=== PATIENT | female | born 1940 | race Caucasian/White ===

== ENCOUNTER → 2019-07-06 11:32 | Outpatient (CLI) | payer MEDICARE, SELFPAY ==
--- NOTE | 2019-07-06 | DI.US.S_ITS ---
PROCEDURE: US ABDOMEN COMPLETE INDICATIONS: ABDOMINAL DISTENTION (GASEOUS) TECHNIQUE: Real-time scanning was performed of the abdominal and retroperitoneal organs, with image documentation. COMPARISON: None. FINDINGS: Liver: Liver is diffusely increased in echogenicity. No focal hepatic abnormalities identified. Right hepatic lobe measures 16.3 cm in sagittal diameter, within normal limits. Gallbladder: No gallstones identified. Normal gallbladder wall. No pericholecystic fluid. Negative sonographic Egan sign. Biliary ducts: Intrahepatic bile ducts are non-dilated. Extrahepatic bile duct caliber measures 4.3 mm. Normal is 6-7 mm or less in diameter, or 10 mm or less post-cholecystectomy. Pancreas: Visualized portions of the pancreatic head are sonographically normal. Pancreatic body and tail are obscured by overlying bowel gas. Spleen: Spleen is normal in size (8.4 cm) and homogeneous in echotexture. Kidneys: Kidneys are normal in size and echotexture. Right kidney measures 10.8 cm long; left kidney measures 10.3 cm long. No hydronephrosis or nephrolithiasis. No solid masses. Aorta: Visualized aorta is normal in caliber at less than 3 cm. Vascular calcifications indicate atherosclerosis. Proximal abdominal aorta measures 2.4 cm. Mid abdominal aorta measures 1.7 cm. Distal abdominal aorta measures 2.0 cm. Iliacs: Proximal common iliac arteries are normal in caliber at less than 2.5 cm. Right proximal common iliac artery measures 0.8 cm. Left proximal common iliac artery measures 0.9 cm. IVC: Intrahepatic inferior vena cava is patent. Miscellaneous: No free abdominal fluid. IMPRESSION: 1. Diffuse increased hepatic echogenicity noted, possibly related to hepatic steatosis but other sources of hepatocellular disease (such as hepatic fibrosis/cirrhosis and/or hepatitis) cannot be excluded. Recommend clinical correlation. 2. No ultrasound evidence of acute cholecystitis. Dictated by: Jaleel VILLA Interpreted: Vinicio Wiley MD on 07/06/2019 at 14:02 Approved by: Vinicio Wiley M.D. on 07/06/2019 at 23:36
--- NOTE | 2019-07-06 | DI.US.S_ITS ---
PROCEDURE: US PELVIC COMPLETE INDICATIONS: ABD DISTENTION (GASEOUS) TECHNIQUE: Real-time scanning was performed of the pelvic organs, with image documentation. Additional endovaginal scanning was necessary due to incomplete visualization of the adnexal and endometrial structures by transabdominal scanning. COMPARISON: [facility], , US ABDOMEN COMPLETE, 07/06/2019, 11:56. FINDINGS: Transabdominal scanning: Limited scanning through the kidneys shows no hydronephrosis. No pathologic free abdominal or pelvic fluid. Endovaginal scanning: Uterus: Uterus is normal in size at 5.2 x 2.7 x 4.0 cm. The endometrium measures 3.0 mm in combined thickness. Small myometrial/intramural calcifications measuring up to 0.4 cm in greatest diameter. Ovaries: Normal ovaries measuring 2.1 x 1.3 x 2.6 cm on the right and 2.4 x 1.3 x 1.3 cm on the left. IMPRESSION: Multiple small myometrial calcifications likely representing small uterine fibroids. No source for patient's reported abdominal distention identified by ultrasound. Dictated by: Jaleel VILLA Interpreted: Vinicio Wiley MD on 07/06/2019 at 14:00 Approved by: Vinicio Wiley M.D. on 07/06/2019 at 23:39
== END ==
PROVIDERS: Family Provider Family Medicine; PCP Family Medicine; Visit Provider Internal Medicine
DX: R14.0 Abdominal distension (gaseous) (principal)
CPT/HCPCS: 76700; 76830; 76856

== ENCOUNTER 2021-03-02 15:45 | Emergency (ER) | payer OTHER, SELFPAY ==
[2021-03-02] VITALS (7 sets, daily range): BP systolic 137–161; BP diastolic 67–72; PULSE 70–81; RESP 15–23; TEMP 36.6; O2SAT 92–99; BMI 20.5
--- NOTE | 2021-03-02 16:19 | DI.CT.S_ITS ---
PROCEDURE: CT HEAD/BRAIN WO CON INDICATIONS: syncopal episode last night,does not recall event TECHNIQUE: Noncontrast 4.5 mm thick angled axial sections acquired from the foramen magnum to the vertex, with coronal and sagittal reformats. For radiation dose reduction, the following was used: automated exposure control, adjustment of mA and/or kV according to patient size. COMPARISON: [facility], CT, HEAD WITHOUT CONTRAST, 09/30/2016, 0:55. [facility], CT, HEAD WITHOUT CONTRAST, 05/14/2012, 2:52. FINDINGS: Image quality: Excellent. CSF spaces: Basal cisterns are patent. No extra-axial fluid collections. The ventricles are symmetric in size and shape. Brain: No intracranial bleeds or masses. There is cerebral volume loss for age, with resultant ventricular and sulcal prominence. There has been interval progression of left greater than right periventricular and deep white matter chronic small vessel ischemic changes. Findings appear most severe in the left posterior parietal lobe. There is intracranial internal carotid artery atherosclerosis. Skull and face: Calvarium and visualized facial bones appear intact, without suspicious lesions. Sinuses: Visualized sinuses and mastoids are clear. IMPRESSION: 1. There is been interval progression of left greater than right chronic small vessel ischemic changes most pronounced over the posterior left parietal lobe. There is an area of encephalomalacia likely from remote infarction. This was not seen on comparison study from 2015. If there is persistent clinical concern for acute on chronic ischemic changes, further evaluation with MRI can be considered. 2. Age related senescent changes with mild progression of diffuse cortical volume loss. 3. No acute calvarial fractures. Dictated by: Kevin Covarrubias M.D. on 03/02/2021 at 15:46 Approved by: Kevin Covarrubias M.D. on 03/02/2021 at 15:53
--- NOTE | 2021-03-02 16:22 | DI.RAD.S_ITS ---
PROCEDURE: XR CHEST 1V INDICATIONS: syncope TECHNIQUE: One view of the chest was acquired. COMPARISON: [facility], , CHEST 2 VIEW, 10/22/2012, 11:10. FINDINGS: Surgical changes and devices: None. Lungs and pleura: Lungs are clear. No pleural effusions or pneumothorax. Mediastinum: Mediastinal contours appear normal. Heart size is normal. Bones and chest wall: No suspicious bony lesions. Overlying soft tissues appear unremarkable. IMPRESSION: Stable radiographic evaluation of the chest without acute cardiopulmonary abnormalities or focal airspace disease. Dictated by: Kevin Covarrubias M.D. on 03/02/2021 at 15:53 Approved by: Kevin Covarrubias M.D. on 03/02/2021 at 15:54
--- NOTE | 2021-03-02 16:26 | ED_ITS ---
HPI - Syncope General Chief Complaint: Syncope Stated Complaint: unsteady on feet, fall last night, feet hurt Time Seen by Provider: 03/02/21 16:21 Source: patient Mode of arrival: Wheelchair Limitations: no limitations History of Present Illness HPI narrative: This is a 80-year-old female who comes emergency department with possible syncopal episode. Patient states she was caring her tray from her bedroom back to her kitchen when she woke up on the floor. Patient is unsure how long she was out. Patient states that she was assisted off the floor by her boyfriend, he helped her to bed and then she was up this morning. Her main complaint is now pain in her feet particularly her left greater than her right at the midfoot. Patient states she has a mild headache but this is not atypical for her. She denies any vision changes. She denies any neck or back pain. She denies any chest pain, no shortness of breath, no abdominal pain, no nausea or vomiting, no diarrhea, no black or bloody stools, no frequency dysuria urgency. She denies any other pain or injury elsewhere. Patient states she does not take any daily medications. She has had prior orthopedic surgeries from fractures. Patient does not have any known medication allergies. She quit smoking 6 years prior. Her primary care physician was Dr. Cardona who has retired in the last year. Related Data Home Medications Medication Instructions Recorded Confirmed ASPIRIN (#ASPIRIN) 81 mg PO #0 07/03/12 FLAXSEED OIL (FLAX OIL) 1,000 mg PO #0 07/03/12 Fish Oil (#OMEGA 3) 1,000 mg PO #0 07/03/12 GARLIC (GARLIC OIL) 1 sgl PO #0 07/03/12 LOVASTATIN (MEVACOR) 20 mg PO QDAYPM #0 07/03/12 [CALCIUM] #0 07/03/12 citalopram 40 mg PO QDAY #0 07/03/12 metformin 1,000 mg PO BIDCC #0 07/03/12 trazodone 50 mg PO HS #0 07/03/12 triazolam [Halcion] 0.25 mg PO HSP #0 07/03/12 Previous Rx's Medication Instructions Recorded metformin 500 mg PO BID #30 tab 03/02/21 Allergies Allergy/AdvReac Type Severity Reaction Status Date / Time cat dander [CAT DANDER] Allergy Unknown Verified 03/02/21 16:12 dog dander [DOG DANDER] Allergy Unknown Verified 03/02/21 16:12 horse dander [HORSE DANDER] Allergy Unknown Verified 03/02/21 16:12 Review of Systems Review of Systems ROS Unobtainable: All systems reviewed & are unremarkable except as noted in HPI and below Patient History Social History Smoking Status: Former smoker Smoking Status: Former smoker alcohol intake frequency: holidays/special occasions only Substance Use Type: does not use Exam Narrative Exam Narrative: GEN: Thin, frail-appearing elderly female, alert and oriented x 3, patient appears to be in mild distress. HEENT: Atraumatic, pupils are equal round reactive to light, extraocular movements are intact, nares are clear, TMs are clear with no fluid, there is no conjunctival pallor. Throat is clear without any exudates, erythema, tonsillar enlargement or uvular deviation HEART: Regular rate and rhythm without murmur, clicks, rubs. Pulses are equal in upper and lower extremities LUNGS:Lungs clear to auscultation, no wheezes, rales, crackles, chest moves symmetrically, no tachypnea accessory muscle use. No tenderness of the chest wall. ABD:bowel sounds normal, soft, non-tender, no guarding, rebound, rigidity, no m asses noted, no hepatosplenomegaly :No CVA tenderness BACK: No cervical, thoracic or lumbar vertebral point tenderness. Patient has normal range of motion. Patient's gait is not tested. Muscle strength is 5/5 in upper and lower extremities. MSCL: Non-tender, no muscle atrophy, patient has tenderness particularly in the left foot over the midfoot of the 2nd through 4th toes. There is some mild erythema maybe the beginnings of some ecchymosis. Patient has normal range of motion without any other bony tenderness. She has normal sensation throughout. Her right foot she has some very mild tenderness over the midfoot over all 5 toes but no warmth, erythema or swelling. Patient does not have any other significant bony tenderness. NEURO:CN 2-12 intact, sensation normal. Initial Vital Signs Initial Vital Signs: Vital Signs Temperature 97.8 F 03/02/21 16:08 Pulse Rate 81 03/02/21 16:08 Respiratory Rate 15 03/02/21 16:08 Blood Pressure 137/67 03/02/21 16:08 Pulse Oximetry 98 03/02/21 16:08 Course Orders Ordered: ED Orders 03/02/21 16:19 CT head/brain wo con Stat EKG-12 Lead Stat 03/02/21 16:22 XR chest 1V Stat 03/02/21 16:44 XR foot LT min 3V Stat XR foot RT min 3V Stat 03/02/21 16:50 Complete Blood Count AUTO DIFF Stat Comprehensive Metabolic Panel Stat Ethanol (ETOH) Stat Lipase Stat NT-proBNP (BNP-Adult 18+) Stat Troponin & CK Cardiac Panel Stat Discontinued Medications Sodium Chloride (Normal Saline 0.9%) 1,000 mls @ 150 mls/hr IV CONT DREAD Last Infusion: 03/02/21 18:57 Dose: 0 mls/hr Documented by: Admin: 03/02/21 17:04 Dose: 150 mls/hr Documented by: WAYLON Vital Signs Vital signs: Vital Signs - 8 hr 03/02/21 16:08 03/02/21 16:55 03/02/21 16:58 Temperature 97.8 F Pulse Rate 81 74 72 Respiratory Rate 15 19 20 Blood Pressure 137/67 159/72 H Pulse Oximetry 98 99 03/02/21 17:00 03/02/21 17:30 03/02/21 18:00 Temperature Pulse Rate 70 77 79 Respiratory Rate 18 18 18 Blood Pressure 152/67 H 155/71 H 161/72 H Pulse Oximetry 99 92 95 03/02/21 18:30 Temperature Pulse Rate 77 Respiratory Rate 23 Blood Pressure 157/70 H Pulse Oximetry 97 MDM - Syncope Lab Data Attestation: I reviewed the patient's lab results. Result diagrams: 03/02/21 16:50 03/02/21 16:50 Labs: Lab Results 03/02/21 03/02/21 03/02/21 Range/Units 16:50 16:50 16:50 WBC 6.2 (4.5-11.0) X10^3/uL RBC 4.84 (4.0-5.2) X10^6/uL Hgb 14.2 (12.0-16.0) g/dL Hct 41.4 (36-46) % MCV 85.5 (80-100) fL MCH 29.3 (26-34) PG MCHC 34.3 (30-36) % RDW 13.8 (11.6-14.8) % Plt Count 198 (150-400) X10^3/uL Neut % (Auto) 61.9 (50-75) % Lymph % (Auto) 26.6 (25-40) % Catron % (Auto) 8.9 (3-14) % Eos % (Auto) 1.3 L (2-4) % Baso % (Auto) 1.3 (0-2) % Neut # (Auto) 3900 (7047-0184) /uL Lymph # (Auto) 1700 (7122-0804) /uL Catron # (Auto) 600 (0-900) /uL Eos # (Auto) 100 (0-450) /uL Baso # (Auto) 100 (0-100) /uL Sodium 134 L (137-145) mmol/L Potassium 3.8 (3.4-5.1) mmol/L Chloride 99 (98-107) mmol/L Carbon Dioxide 25 (22-32) mmol/L BUN 15 (7-17) mg/dL Creatinine 0.65 (0.52-1.04) mg/dL Estimated GFR > 60.0 (>60) mL/min BUN/Creatinine Ratio 23.1 H (6-22) Glucose 358 H (80-110) mg/dL Calcium 9.6 (8.4-10.2) mg/dL Total Bilirubin 0.5 (0.2-1.3) mg/dL AST 22 (14-36) IU/L ALT 19 (<35) IU/L Alkaline Phosphatase 84 (38-126) U/L Total Creatine Kinase 26 L (30-135) U/L CK-MB (CK-2) TNP CK-MB (CK-2) Rel Index TNP Troponin I < 0.012 (0.01-0.034) ng/mL NT-Pro-B Natriuret Pep 35 (<450) pg/mL Total Protein 7.0 (6.3-8.2) g/dL Albumin 4.0 (3.5-5.0) g/dL Globulin 3.0 (1.7-4.1) g/dL Albumin/Globulin Ratio 1.3 (1.0-2.8) Lipase 123 (23-300) U/L Ethyl Alcohol ( - 10) mg/dL 03/02/21 Range/Units 16:50 WBC (4.5-11.0) X10^3/uL RBC (4.0-5.2) X10^6/uL Hgb (12.0-16.0) g/dL Hct (36-46) % MCV (80-100) fL MCH (26-34) PG MCHC (30-36) % RDW (11.6-14.8) % Plt Count (150-400) X10^3/uL Neut % (Auto) (50-75) % Lymph % (Auto) (25-40) % Catron % (Auto) (3-14) % Eos % (Auto) (2-4) % Baso % (Auto) (0-2) % Neut # (Auto) (8900-4177) /uL Lymph # (Auto) (9494-1643) /uL Catron # (Auto) (0-900) /uL Eos # (Auto) (0-450) /uL Baso # (Auto) (0-100) /uL Sodium (137-145) mmol/L Potassium (3.4-5.1) mmol/L Chloride (98-107) mmol/L Carbon Dioxide (22-32) mmol/L BUN (7-17) mg/dL Creatinine (0.52-1.04) mg/dL Estimated GFR (>60) mL/min BUN/Creatinine Ratio (6-22) Glucose (80-110) mg/dL Calcium (8.4-10.2) mg/dL Total Bilirubin (0.2-1.3) mg/dL AST (14-36) IU/L ALT (<35) IU/L Alkaline Phosphatase (38-126) U/L Total Creatine Kinase (30-135) U/L CK-MB (CK-2) CK-MB (CK-2) Rel Index Troponin I (0.01-0.034) ng/mL NT-Pro-B Natriuret Pep (<450) pg/mL Total Protein (6.3-8.2) g/dL Albumin (3.5-5.0) g/dL Globulin (1.7-4.1) g/dL Albumin/Globulin Ratio (1.0-2.8) Lipase (23-300) U/L Ethyl Alcohol < 10 ( - 10) mg/dL Imaging Data CT scan - head: Radiologist's Impression: Ivanna Hendrickson 80 F [address] [id number] Scan ReportSigned Patient: Ivanna Hendrickson CMR#: [id number]: [id number]:[id number]/Sex: 80 / FDate of Service: 03/02/21Loc: EDAccession Number: [id number] Procedure: CT head/brain wo con Ordering Provider: Shikha Thurman D.O. PROCEDURE: CT HEAD/BRAIN WO CON INDICATIONS: syncopal episode last night,does not recall event TECHNIQUE: Noncontrast 4.5 mm thick angled axial sections acquired from the foramen magnum to the vertex, with coronal and sagittal reformats. For radiation dose reduction, the following was used: automated exposure control, adjustment of mA and/or kV according to patient size. COMPARISON: [facility], CT, HEAD WITHOUT CONTRAST, 09/30/2016, 0:55. [facility], CT, HEAD WITHOUT CONTRAST, 05/14/2012, 2:52. FINDINGS: Image quality: Excellent. CSF spaces: Basal cisterns are patent. No extra-axial fluid collections. The ventricles are symmetric in size and shape. Brain: No intracranial bleeds or masses. There is cerebral volume loss for age, with resultant ventricular and sulcal prominence. There has been interval progression of left greater than right periventricular and deep white matter chronic small vessel ischemic changes. Findings appear most severe in the left posterior parietal lobe. There is intracranial internal carotid artery atherosclerosis. Skull and face: Calvarium and visualized facial bones appear intact, without suspicious lesions. Sinuses: Visualized sinuses and mastoids are clear. IMPRESSION: 1. There is been interval progression of left greater than right chronic small vessel ischemic changes most pronounced over the posterior left parietal lobe. There is an area of encephalomalacia likely from remote infarction. This was not seen on comparison study from 2016. If there is persistent clinical concern for acute on chronic ischemic changes, further evaluation with MRI can be considered. 2. Age related senescent changes with mild progression of diffuse cortical volume loss. 3. No acute calvarial fractures. Dictated by: Kevin Covarrubias M.D. on 03/02/2021 at 15:46 Approved by: Kevin Covarrubias M.D. on 03/02/2021 at 15:53 Chest x-ray: Radiologist's Impression: [address] [id number] ReportSigned Patient: Ivanna Hendrickson CMR#: [id number]: 1940cct:[id number]/Sex: 80 / FDate of Service: 03/02/21Lo: EDAccession Number: [id number] Procedure: XR chest 1V Ordering Provider: Shikha Thurman D.O. PROCEDURE: XR CHEST 1V INDICATIONS: syncope TECHNIQUE: One view of the chest was acquired. COMPARISON: [facility], CHEST 2 VIEW, 10/22/2012, 11:10. FINDINGS: Surgical changes and devices: None. Lungs and pleura: Lungs are clear. No pleural effusions or pneumothorax. Mediastinum: Mediastinal contours appear normal. Heart size is normal. Bones and chest wall: No suspicious bony lesions. Overlying soft tissues appear unremarkable. IMPRESSION: Stable radiographic evaluation of the chest without acute cardiopulmonary abnormalities or focal airspace disease. Dictated by: Kevin Covarrubias M.D. on 03/02/2021 at 15:53 Approved by: Kevin Covarrubias M.D. on 03/02/2021 at 15:54 Extremity x-ray #1: Radiologist's Impression: [address] [id number] ReportSigned Patient: Ivanna Hendrickson CMR#: [id number]: 1940cct:[id number]/Sex: 80 / FDate of Service: 03/02/21Loc: EDAccession Number: [id number] Procedure: XR foot RT min 3V Ordering Provider: Shikha Thurman D.O. PROCEDURE: XR FOOT RT MIN 3V INDICATIONS: mid foot pain,s/p fall/syncope TECHNIQUE: 3 views of the foot were acquired. COMPARISON: None. FINDINGS: Bones: Diffuse osteopenia. Polyarticular background degenerative changes throughout the right foot. No acute fracture seen. Degenerative changes of the tibiotalar and subtalar joints. Partially imaged surgical fixation hardware of the distal right tibia. Limited evaluation without evidence for hardware complication. No suspicious intraosseous lesions. Soft tissues: No tibiotalar joint effusion. Achilles tendon appears normal. IMPRESSION: 1. Right foot without acute fracture or dislocation. 2. Diffuse osteopenia. 3. Right tibiotalar and subtalar joint osteoarthrosis and diffuse background degenerative changes of the right foot. If there is persistent clinical concern for occult fracture given adequate mechanism of injury, consider repeat imaging in 10-14 days. Dictated by: Kevin Covarrubias M.D. on 03/02/2021 at 17:04 Approved by: Kevin Covarrubias M.D. on 03/02/2021 at 17:06 Extremity x-ray #2: Radiologist's Impression: [address] [id number] ReportSigned Patient: Ivanna Hendrickson CMR#: [id number]: 1940cct:[id number]/Sex: 80 / FDate of Service: 03/02/21Loc: EDAccession Number: [id number] Procedure: XR foot LT min 3V Ordering Provider: Shikha Thurman D.O. PROCEDURE: XR FOOT LT MIN 3V INDICATIONS: mid foot pain, s/p fall/syncope TECHNIQUE: 3 views of the foot were acquired. COMPARISON: [facility], CR, XR FOOT RT MIN 3V, 03/02/2021, 17:01. [facility], , ANKLE 3 VIEWS LEFT, 06/30/2012, 16:33. FINDINGS: Bones: Diffuse osteopenia. Status post open reduction and internal fixation of the distal left fibula. No evidence to suggest hardware failure or loosening. Severe degenerative changes of the left 1st metatarsophalangeal joint. Degenerative changes of the subtalar joint. There is poor visualization of the anterior talus, likely related to combination of bone demineralization and patient positioning. No suspicious bony lesions. Soft tissues: No tibiotalar joint effusion. Achilles tendon appears normal. IMPRESSION: 1. Diffuse osteopenia. 2. Irregularity of the neck of the anterior talus which may be due to combination of patient positioning and osteopenia. Recommend correlation with physical examination to exclude point tenderness over the anterior/dorsal ankle. Consider further evaluation with dedicated imaging of the left foot. 3. Status post open reduction and internal fixation of the distal fibula without evidence for hardware complication. 4. Severe degenerative changes of the left 1st metatarsophalangeal joint. Dictated by: Kevin Covarrubias M.D. on 03/02/2021 at 16:53 Approved by: Kevin Covarrubias M.D. on 03/02/2021 at 17:00 ECG Data Attestation: I personally reviewed and interpreted this ECG as follows: Interpretation: Sinus rhythm left axis deviation, rate of 69 W[place] 186 QRS 84 and QTC 441. Under patient has T-wave inversion in lead 3. With no priors for comparison with no elevation noted. MDM Narrative Medical decision making narrative: This is a 80-year-old female with a likely syncopal event. Patient does not recall hitting the floor. She has pain in her left and right feet but on her left foot x-ray she has some possible changes on the talus but she is nontender. The only area she is tender is at the midfoot just adjacent to the proximal interphalangeal joint. Patient was put in a ortho shoe for her left which was the most tender, she is able to write bear on her weight without issue. Set up with a walker. Her imaging otherwise has well as EKG and lab work showed hyperglycemia but no other acute changes that would clearly delineate the cause of her event last night. Patient did not have any arrhythmias here in the department. Discussed with patient she has not been taking her anti diabetic medications. She had stopped after her primary care physician retired and she was recommended to restart these is increases her risk for stroke as well as heart attack. Patient and I discussed that she will need follow-up and if she has any recurrent events she needs repeat evaluation in the emergency department and further workup. Discharge Plan Departure Patient Disposition: Home Clinical Impression: Syncope, Bilateral foot pain Instructions: DI for Syncope in Adults (Fainting) Activity Restrictions/Additional Instructions: Follow up with your physician in the next several days for recheck. Call for an appointment. You can follow up with any of Dr. Brendan morales. Your glucose is quite elevated today you should restart your metformin. I did not restart at the full dose but a half dose of 500mg twice daily. [facility] [place]. Your left foot x-ray shows some irregularity at the talus which is the upper fo ot, you are nontender in this area so I do not suspect a fracture at this time. Your right foot xray shows degenerative changes but no clear fractures or breaks. If you continue to have symptoms I do recommend repeat x-ray imaging in 7-10 days. Splint Care: Keep splint clean and dry. Elevated affected body part to decrease swelling. OK to use ice pack on the affected body part. Use for 15-20 minutes each time, for 5-6x per day. If you develop worsening pain, numbness, tingling, discoloration of the affected body part, adjust the ortho shoe, and either see your doctor for an urgent re-assessment, or return to the Emergency Department. Return to the Emergency Department for any new or worsening symptoms. Please return for fevers, lightheadedness, passing out, recurrent symptoms, new chest pain, shortness of breath, persistent vomiting, new or worsening swelling or increasing pain. Prescriptions: New metformin 500 mg tablet 500 mg PO BID Qty: 30 RF: 0 No Action citalopram 40 MG tablet 40 mg PO QDAY Qty: 0 RF: 0 trazodone 50 MG tablet 50 mg PO HS Qty: 0 RF: 0 ASPIRIN (#ASPIRIN) 81 mg PO Qty: 0 RF: 0 metformin 1,000 MG tablet 1,000 mg PO BIDCC Qty: 0 RF: 0 LOVASTATIN (MEVACOR) 20 mg PO QDAYPM Qty: 0 RF: 0 triazolam [Halcion] 0.25 MG tablet 0.25 mg PO HSP Qty: 0 RF: 0 FLAXSEED OIL (FLAX OIL) 1,000 mg PO Qty: 0 RF: 0 Fish Oil (#OMEGA 3) 1,000 mg PO Qty: 0 RF: 0 GARLIC (GARLIC OIL) 1 sgl PO Qty: 0 RF: 0 [CALCIUM] Qty: 0 RF: 0
--- NOTE | 2021-03-02 16:44 | DI.RAD.S_ITS ---
PROCEDURE: XR FOOT RT MIN 3V INDICATIONS: mid foot pain,s/p fall/syncope TECHNIQUE: 3 views of the foot were acquired. COMPARISON: None. FINDINGS: Bones: Diffuse osteopenia. Polyarticular background degenerative changes throughout the right foot. No acute fracture seen. Degenerative changes of the tibiotalar and subtalar joints. Partially imaged surgical fixation hardware of the distal right tibia. Limited evaluation without evidence for hardware complication. No suspicious intraosseous lesions. Soft tissues: No tibiotalar joint effusion. Achilles tendon appears normal. IMPRESSION: 1. Right foot without acute fracture or dislocation. 2. Diffuse osteopenia. 3. Right tibiotalar and subtalar joint osteoarthrosis and diffuse background degenerative changes of the right foot. If there is persistent clinical concern for occult fracture given adequate mechanism of injury, consider repeat imaging in 10-14 days. Dictated by: Kevin Covarrubias M.D. on 03/02/2021 at 17:04 Approved by: Kevin Covarrubias M.D. on 03/02/2021 at 17:06
--- NOTE | 2021-03-02 16:44 | DI.RAD.S_ITS ---
PROCEDURE: XR FOOT LT MIN 3V INDICATIONS: mid foot pain, s/p fall/syncope TECHNIQUE: 3 views of the foot were acquired. COMPARISON: [facility], CR, XR FOOT RT MIN 3V, 03/02/2021, 17:01. [facility], CR, ANKLE 3 VIEWS LEFT, 06/30/2012, 16:33. FINDINGS: Bones: Diffuse osteopenia. Status post open reduction and internal fixation of the distal left fibula. No evidence to suggest hardware failure or loosening. Severe degenerative changes of the left 1st metatarsophalangeal joint. Degenerative changes of the subtalar joint. There is poor visualization of the anterior talus, likely related to combination of bone demineralization and patient positioning. No suspicious bony lesions. Soft tissues: No tibiotalar joint effusion. Achilles tendon appears normal. IMPRESSION: 1. Diffuse osteopenia. 2. Irregularity of the neck of the anterior talus which may be due to combination of patient positioning and osteopenia. Recommend correlation with physical examination to exclude point tenderness over the anterior/dorsal ankle. Consider further evaluation with dedicated imaging of the left foot. 3. Status post open reduction and internal fixation of the distal fibula without evidence for hardware complication. 4. Severe degenerative changes of the left 1st metatarsophalangeal joint. Dictated by: Kevin Covarrubias M.D. on 03/02/2021 at 16:53 Approved by: Kevin Covarrubias M.D. on 03/02/2021 at 17:00
[2021-03-02] MEDS: SODIUM CHLORIDE 0.9% 1,000 ML 150 ML IV (17:04)
[2021-03-02 17:06] LABS: Add Manual Diff / Slide Review NO; Basophils Absolute Auto 100 /uL (0-100); Basophils Percent Auto 1.3 % (0-2); Eosinophils Absolute Auto 100 /uL (0-450); Eosinophils Percent Auto 1.3 % (2-4); Hematocrit 41.4 % (36-46); Hemoglobin 14.2 g/dL (12.0-16.0); Lymphocytes Absolute Auto 1700 /uL (1100-4500); Lymphocytes Percent Auto 26.6 % (25-40); Mean Corpuscular HGB Conc 34.3 % (30-36); Mean Corpuscular Hemoglobin 29.3 PG (26-34); Mean Corpuscular Volume 85.5 fL (80-100); Monocytes Absolute Auto 600 /uL (0-900); Monocytes Percent Auto 8.9 % (3-14); Neutrophils Absolute Auto 3900 /uL (1500-7000); Neutrophils Percent Auto 61.9 % (50-75); Platelet Count 198 X10^3/uL (150-400); Red Blood Cell Count 4.84 X10^6/uL (4.0-5.2); Red Cell Distribution Width 13.8 % (11.6-14.8); White Blood Cell Count 6.2 X10^3/uL (4.5-11.0)
[2021-03-02 17:20] LABS: Ethanol (ETOH) < 10 mg/dL
[2021-03-02 17:25] LABS: Lipase 123 U/L (23-300)
[2021-03-02 17:27] LABS: Alanine Aminotransferase 19 IU/L (<35); Albumin Globulin Ratio 1.3 (1.0-2.8); Alkaline Phosphatase 84 U/L (38-126); Aspartate Aminotransferase 22 IU/L (14-36); BUN Creatinine Ratio 23.1 (6-22); Bilirubin Total 0.5 mg/dL (0.2-1.3); Blood Urea Nitrogen 15 mg/dL (7-17); Calcium 9.6 mg/dL (8.4-10.2); Carbon Dioxide 25 mmol/L (22-32); Chloride 99 mmol/L (98-107); Creatine Kinase 26 U/L (30-135); Estimated Glomerular Filt Rate > 60.0 mL/min (>60); Glucose 358 mg/dL (80-110); HEMOLYSIS < 15 (0-50); Potassium 3.8 mmol/L (3.4-5.1); Sodium 134 mmol/L (137-145)
[2021-03-02 17:34] LABS: NT-proBNP (BNP-Adult 18+) 35 pg/mL (<450)
[2021-03-02 17:39] LABS: Troponin I < 0.012 ng/mL (0.01-0.034)
== END 2021-03-02 18:59 | disposition home or self-care (01) ==
PROVIDERS: Emergency Provider Emergency Medicine
DX: R55 Syncope and collapse (principal); M79.672 Pain in left foot; M79.671 Pain in right foot
CPT/HCPCS: 36415; 70450; 71045; 73630; 80053; 80320; 82550; 83690; 83880; 84484; 85025; 93005; 93010; 96360; 96361; 99284

== ENCOUNTER 2021-06-25 08:10 | Emergency (ER) | payer OTHER, SELFPAY ==
[2021-06-25 08:18] VITALS: BP 163/76; PULSE 72; RESP 16; TEMP 36.6; O2SAT 96
--- NOTE | 2021-06-25 08:18 | DI.RAD.S_ITS ---
PROCEDURE: XR KNEE LT 3V INDICATIONS: fall, unable to bear weight TECHNIQUE: 3 views of the knee were acquired. COMPARISON: None. FINDINGS: Bones: There is a nondisplaced fracture noted involving the proximal fibula. Generalized decreased osseous mineralization noted. No suspicious bony lesions. Mild medial compartment joint space narrowing. Soft tissues: No joint effusion. No suspicious soft tissue calcifications. Diffuse atherosclerotic vascular calcification noted. IMPRESSION: 1. Nondisplaced proximal fibular fracture. 2. Mild medial compartment joint space narrowing without joint effusion. Approved by: Jorge Downs M.D. on 06/25/2021 at 8:21
--- NOTE | 2021-06-25 08:18 | DI.RAD.S_ITS ---
PROCEDURE: XR ANKLE LT MIN 3V INDICATIONS: fall, unable to bear weight TECHNIQUE: 3 views of the ankle were acquired. COMPARISON: [facility], CR, XR FOOT LT MIN 3V, 03/02/2021, 17:01. [facility], CR, ANKLE 3 VIEWS LEFT, 06/30/2012, 16:33. FINDINGS: Bones: There is a well-healed distal fibular fracture supported by lateral cortical sideplate and screws. Regional osteopenia noted. Ankle mortise is maintained. No evidence of acute fracture, hardware failure or loosening. Soft tissues: No tibiotalar joint effusion. Achilles tendon appears normal. IMPRESSION: Osteopenia without evidence of acute fracture or dislocation Distal fibular cortical sideplate and screws in good position. No hardware failure or loosening Approved by: Jorge Downs M.D. on 06/25/2021 at 8:17
--- NOTE | 2021-06-25 08:20 | ED_ITS ---
HPI - General Adult General Chief complaint: Fall Stated complaint: GLF Time Seen by Provider: 06/25/21 08:18 History of Present Illness HPI narrative: 80-year-old woman lives alone and independently with a history of type 2 diabetes, depression, hyperlipidemia was in the bathroom and had a mechanical fall landing on her left side. No loss of consciousness, no syncope, no chest pain or palpitations associated with event. She was unable to bear weight. States that she may have hit her head but has no complaints of head pain no head trauma no neck pain. She is not on any anticoagulants. She has had no other recent illnesses and complains of no fevers, cough, chills, vomiting, diarrhea, abdominal pain. She does note that her left ankle is chronically painful and she believes that the screws from a distant ORIF are ?coming out?. Related Data Home Medications Medication Instructions Recorded Confirmed ASPIRIN (#ASPIRIN) 81 mg PO #0 07/03/12 FLAXSEED OIL (FLAX OIL) 1,000 mg PO #0 07/03/12 Fish Oil (#OMEGA 3) 1,000 mg PO #0 07/03/12 GARLIC (GARLIC OIL) 1 sgl PO #0 07/03/12 LOVASTATIN (MEVACOR) 20 mg PO QDAYPM #0 07/03/12 [CALCIUM] #0 07/03/12 citalopram 40 mg tablet 40 mg PO QDAY #0 07/03/12 metformin 1,000 mg tablet 1,000 mg PO BIDCC #0 07/03/12 trazodone 50 mg tablet 50 mg PO HS #0 07/03/12 triazolam 0.25 mg tablet (Halcion) 0.25 mg PO HSP #0 07/03/12 Previous Rx's Medication Instructions Recorded metformin 500 mg tablet 500 mg PO BID #30 tab 03/02/21 hydrocodone 5 mg-acetaminophen 325 1 tab PO Q6HR PRN #12 tab 06/25/21 mg tablet Allergies Allergy/AdvReac Type Severity Reaction Status Date / Time cat dander [CAT DANDER] Allergy Unknown Verified 06/25/21 09:02 dog dander [DOG DANDER] Allergy Unknown Verified 06/25/21 09:02 horse dander [HORSE DANDER] Allergy Unknown Verified 06/25/21 09:02 Review of Systems Review of Systems Narrative: Remainder of complete review of systems is otherwise unremarkable except for that included in the HPI. Patient History Medical History Depression Hyperlipidemia Poorly controlled diabetes mellitus Social History Smoking Status: Former smoker Smoking Status: Former smoker alcohol intake frequency: holidays/special occasions only Substance Use Type: does not use Exam Narrative Exam Narrative: General: Frail appearing but in no acute distress. Able to give a complete history. HEENT: Moist mucous membranes, normal sclera with reactive pupils, head is atraumatic Neck: No JVD, supple, no midline cervical spine pain Respiratory: Full and symmetrical air movement Cardiac: Regular rate and rhythm no murmurs no bruits Abdomen: Soft, nontender, good bowel tones, no flank pain Skin: Warm and dry, no rashes, abrasions or bruises Neurologic: Grossly neurologically intact with no obvious asymmetries or abnormalities Extremities: No external trauma, well perfused, able to lift her left leg without pain with excellent flexion, internal and external rotation. She has some tenderness along the fibular head and some chronic left ankle tenderness with what appears to be mild chronic swelling bilaterally at the ankle. She does have full range of motion at the ankle and at the knee. Psych: Cooperative, appropriate affect Initial Vital Signs Initial Vital Signs: Vital Signs Temperature 97.8 F 06/25/21 08:18 Pulse Rate 72 06/25/21 08:18 Respiratory Rate 16 06/25/21 08:18 Blood Pressure 163/76 H 06/25/21 08:18 Pulse Oximetry 96 06/25/21 08:18 Course Orders Ordered: ED Orders 06/25/21 08:18 XR ankle LT min 3V Stat XR knee LT 3V Stat 06/25/21 10:11 XR tibia fibula LT 2V Stat Discontinued Medications Hydrocodone Bitart/Acetaminophen (Hydrocodone/Acet 5/325 Tablet) 1 tab PO NOW ONE Stop: 06/25/21 08:19 Last Admin: 06/25/21 08:41 Dose: 1 tab Documented by: RAMIRO Vital Signs Vital signs: Vital Signs - 8 hr 06/25/21 08:18 06/25/21 11:18 Temperature 97.8 F 97.7 F Pulse Rate 72 62 Respiratory Rate 16 20 Blood Pressure 163/76 H 145/65 H Pulse Oximetry 96 95 Medical Decision Making Imaging Data XR ankle: Radiologist's Impression: FINDINGS: Bones: There is a well-healed distal fibular fracture supported by lateral cortical sideplate and screws. Regional osteopenia noted. Ankle mortise is maintained. No evidence of acute fracture, hardware failure or loosening. Soft tissues: No tibiotalar joint effusion. Achilles tendon appears normal. IMPRESSION: Osteopenia without evidence of acute fracture or dislocation Distal fibular cortical sideplate and screws in good position. No hardware fa ilure or loosening Approved by: Jorge Downs M.D. on 06/25/2021 at 8:17 XR knee: Radiologist's Impression: FINDINGS: Bones: There is a nondisplaced fracture noted involving the proximal fibula. Generalized decreased osseous mineralization noted. No suspicious bony lesions. Mild medial compartment joint space narrowing. Soft tissues: No joint effusion. No suspicious soft tissue calcifications. Diffuse atherosclerotic vascular calcification noted. IMPRESSION: 1. Nondisplaced proximal fibular fracture. 2. Mild medial compartment joint space narrowing without joint effusion. Approved by: Jorge Downs M.D. on 06/25/2021 at 8:21 xr tib/fib: Radiologist's Impression: FINDINGS: Bones: There is an oblique fracture through the proximal fibular diaphysis. Generalized decrease in osseous mineralization noted. Distal fibular cortical sideplate and screws unremarkable. Soft tissues: No suspicious soft tissue calcifications or masses. Diffuse atherosclerotic vascular calcification noted. IMPRESSION: Oblique nondisplaced proximal fibular diaphyseal fracture Approved by: Jorge Downs M.D. on 06/25/2021 at 10:03 MDM Narrative Medical decision making narrative: 80-year-old woman with mechanical fall in the bathroom with sustained Oblique nondisplaced proximal fibular diaphyseal fracture on the left. No other significant injury. Pain was well controlled with a single Vicodin in the emergency department. Case is reviewed with Dr. Marcus, orthopedist. X-rays reviewed in real-time. With out evidence of syndesmotic fracture or acute knee injury at this time. She is safe for conservative management with weight-bearing as tolerated and does not need additional splinting. She will need pain control help and she does have walker available for use at home. She is safe for home discharge will ask her to follow-up with orthopedics as an outpatient. Discharge Plan Departure Patient Disposition: Home Clinical Impression: Left fibular fracture Qualifiers: Encounter type: initial encounter Fibula location: proximal Fracture type: closed Fracture morphology: torus Qualified Code(s): S82.812A - Torus fracture of upper end of left fibula, initial encounter for closed fracture Instructions: Fibula Shaft Fracture Activity Restrictions/Additional Instructions: Thank you for coming in today You did break a smaller bone in your lower leg. The fracture is close to the knee but does not involve the knee itself. Because the larger bone of the leg is stabilizing the fracture, you do not need a cast or a splint at this time. It is going to hurt and will likely hurt more tomorrow. Please make sure you are using your walker for stability. Using 400 mg of ibuprofen (2 lbah-mon-bwkxdax pills) and 1 Tylenol every 6 hours can be very helpful in controlling pain. For severe pain using to ibuprofen and 1 Vicodin can help. Vicodin is a narcotic and will need to constipated. Please take a stool softener every day that you use any narcotic You will need follow-up with [facility] for definitive treatment of this fracture. Please call them at [phone] to schedule a visit within the next week. I hope you heal quickly Prescriptions: New hydrocodone-acetaminophen 5-325 mg tablet 1 tab PO Q6HR PRN (Reason: pain) Qty: 12 RF: 0 No Action citalopram 40 MG tablet 40 mg PO QDAY Qty: 0 RF: 0 trazodone 50 MG tablet 50 mg PO HS Qty: 0 RF: 0 ASPIRIN (#ASPIRIN) 81 mg PO Qty: 0 RF: 0 metformin 1,000 MG tablet 1,000 mg PO BIDCC Qty: 0 RF: 0 LOVASTATIN (MEVACOR) 20 mg PO QDAYPM Qty: 0 RF: 0 triazolam [Halcion] 0.25 MG tablet 0.25 mg PO HSP Qty: 0 RF: 0 FLAXSEED OIL (FLAX OIL) 1,000 mg PO Qty: 0 RF: 0 Fish Oil (#OMEGA 3) 1,000 mg PO Qty: 0 RF: 0 GARLIC (GARLIC OIL) 1 sgl PO Qty: 0 RF: 0 [CALCIUM] Qty: 0 RF: 0 metformin 500 mg tablet 500 mg PO BID Qty: 30 RF: 0 Referrals: Iraj Scott MD [Primary Care Provider] -
[2021-06-25] MEDS: HYDROCODONE/ACET 5/325 TABLET 1 TAB PO (08:41)
--- NOTE | 2021-06-25 10:11 | DI.RAD.S_ITS ---
PROCEDURE: XR TIBIA FIBULA LT 2V INDICATIONS: fracture partially visible on knee film TECHNIQUE: 2 views of the tibia and fibula were acquired. COMPARISON: None. FINDINGS: Bones: There is an oblique fracture through the proximal fibular diaphysis. Generalized decrease in osseous mineralization noted. Distal fibular cortical sideplate and screws unremarkable. Soft tissues: No suspicious soft tissue calcifications or masses. Diffuse atherosclerotic vascular calcification noted. IMPRESSION: Oblique nondisplaced proximal fibular diaphyseal fracture Approved by: Jorge Downs M.D. on 06/25/2021 at 10:03
[2021-06-25 11:18] VITALS: BP 145/65; PULSE 60; PULSE 62; RESP 20; TEMP 36.5; O2SAT 93; O2SAT 95
[2021-06-25 11:19] VITALS: BP 145/65; PULSE 63; O2SAT 99
== END 2021-06-25 12:10 | disposition home or self-care (01) ==
PROVIDERS: Emergency Provider Emergency Medicine; PCP Family Medicine
DX: S82.812A Torus fracture of upper end of left fibula, initial encounter for closed fracture (principal); W18.30XA Fall on same level, unspecified, initial encounter
CPT/HCPCS: 73562; 73590; 73610; 99283; 99284

== ENCOUNTER → 2022-02-02 12:36 | Outpatient (CLI) | payer OTHER, SELFPAY ==
--- NOTE | 2022-02-02 | DI.RAD.S_ITS ---
PROCEDURE: XR HAND RT MIN 3V INDICATIONS: right middle finger pain TECHNIQUE: 3 views of the hand(s) acquired. COMPARISON: [facility], , HAND 3V RIGHT, 06/08/2013, 9:33. FINDINGS: Bones: Diffuse osteopenia. No acute, displaced fracture. [place] arthrosis of the 1st carpometacarpal articulation. Carpal bones are normally aligned. No suspicious bony lesions. Diffuse joint space loss with minimal osteophytosis of the interphalangeal joints. Periarticular lucency involving the distal aspect of the 2nd proximal phalanx, which may reflect fibrocystic change or erosion. Soft tissues: Calcification within the region of the TFCC, compatible chondrocalcinosis. IMPRESSION: No acute osseous abnormality. Dictated by: Alonoz Zheng M.D. on 02/02/2022 at 13:40 Approved by: Alonzo Zheng M.D. on 02/02/2022 at 13:42
== END ==
PROVIDERS: PCP Family Medicine; Referring Provider Family Medicine; Visit Provider Family Medicine
DX: M79.644 Pain in right finger(s) (principal)
CPT/HCPCS: 73130

== ENCOUNTER 2022-02-15 19:49 | Observation (INO) | payer OTHER, SELFPAY ==
--- NOTE | 2022-02-15 20:09 | DI.RAD.S_ITS ---
PROCEDURE: XR HAND RT MIN 3V INDICATIONS: dog bite TECHNIQUE: 3 views of the hand(s) acquired. COMPARISON: [facility], CR, XR HAND RT MIN 3V, 02/02/2022, 12:32. FINDINGS: Bones: There is a mildly displaced in comminuted fracture the 5th proximal phalanx extending to the metacarpophalangeal joint. There is diffuse osteopenia. There is moderate degeneration at the 1st carpometacarpal joint as well as mild to moderate degeneration of the interphalangeal joints. No suspicious bony lesions. Soft tissues: There is a metallic ring on the 3rd digit slightly limiting evaluation. Otherwise, no discrete radiopaque foreign bodies. No suspicious soft tissue calcifications. IMPRESSION: 1. Fracture of the 5th proximal phalanx extending to the 5th MCP joint. 2. Diffuse osteopenia. Dictated by: Sd Weiss M.D. on 02/15/2022 at 21:07 Approved by: Sd Weiss M.D. on 02/15/2022 at 21:09
[2022-02-15 20:10] VITALS: BP 161/80; PULSE 82; RESP 17; TEMP 36.6; O2SAT 99; BMI 21.1
[2022-02-15] MEDS: MORPHINE 2 MG/ML INJ IV (23:17)
[2022-02-15] MEDS: TET,DIPH,PERTUSS(ACELL),VAC/PF 0.5 ML SYRINGE IM (23:17)
[2022-02-15 23:18] LABS: Add Manual Diff / Slide Review NO; Basophils Absolute Auto 100 /uL (0-100); Eosinophils Absolute Auto 100 /uL (0-450); Eosinophils Percent Auto 0.7 % (2-4); Hematocrit 43.6 % (36-46); Hemoglobin 14.9 g/dL (12.0-16.0); Lymphocytes Absolute Auto 1700 /uL (1100-4500); Mean Corpuscular HGB Conc 34.1 % (30-36); Mean Corpuscular Hemoglobin 28.7 PG (26-34); Mean Corpuscular Volume 84.2 fL (80-100); Monocytes Absolute Auto 500 /uL (0-900); Monocytes Percent Auto 5.7 % (3-14); Neutrophils Absolute Auto 6400 /uL (1500-7000); Neutrophils Percent Auto 73.6 % (50-75); Platelet Count 243 X10^3/uL (150-400); Red Blood Cell Count 5.18 X10^6/uL (4.0-5.2); Red Cell Distribution Width 13.2 % (11.6-14.8); White Blood Cell Count 8.7 X10^3/uL (4.5-11.0)
[2022-02-15 23:23] LABS: Lactate (Lactic Acid) 1.5 mmol/L (0.7-2.1)
[2022-02-15 23:24] LABS: Alanine Aminotransferase 15 IU/L (<35); Albumin 4.4 g/dL (3.5-5.0); Albumin Globulin Ratio 1.2 (1.0-2.8); Alkaline Phosphatase 80 U/L (38-126); Aspartate Aminotransferase 19 IU/L (14-36); BUN Creatinine Ratio 19.6 (6-22); Bilirubin Total 0.7 mg/dL (0.2-1.3); Blood Urea Nitrogen 11 mg/dL (7-17); Calcium 9.4 mg/dL (8.4-10.2); Carbon Dioxide 31 mmol/L (22-32); Chloride 99 mmol/L (98-107); Estimated Glomerular Filt Rate > 60.0 mL/min (>60); Globulin 3.7 g/dL (1.7-4.1); Glucose 402 mg/dL (80-110); HEMOLYSIS < 15 (0-50); Potassium 3.6 mmol/L (3.4-5.1); Sodium 139 mmol/L (137-145); Total Protein 8.1 g/dL (6.3-8.2)
[2022-02-16] VITALS (15 sets, daily range): BP systolic 102–177; BP diastolic 47–79; PULSE 63–80; RESP 12–20; TEMP 36.5–37.9; O2SAT 92–99; BMI 21.1
--- NOTE | 2022-02-16 00:37 | ED_ITS ---
HPI - Animal Bite General Chief Complaint: Animal Bite Stated Complaint: dog bite on right hand Time Seen by Provider: 02/16/22 00:37 Source: patient Mode of arrival: Wheelchair History of Present Illness HPI narrative: 81-year-old woman with a history of type 2 diabetes, hyperlipidemia who was at home today when she noticed her large dog biting at something on the bed. She went to remove the object and the dog objected, bit her right hand at the base of the 5th finger and shook significantly. She has through and through lacerations around the base of the 5th finger she is neurovascularly intact Related Data Home Medications Medication Instructions Recorded Confirmed ASPIRIN (#ASPIRIN) 81 mg PO #0 07/03/12 FLAXSEED OIL (FLAX OIL) 1,000 mg PO #0 07/03/12 Fish Oil (#OMEGA 3) 1,000 mg PO #0 07/03/12 GARLIC (GARLIC OIL) 1 sgl PO #0 07/03/12 LOVASTATIN (MEVACOR) 20 mg PO QDAYPM #0 07/03/12 [CALCIUM] #0 07/03/12 citalopram 40 mg tablet 40 mg PO QDAY #0 07/03/12 metformin 1,000 mg tablet 1,000 mg PO BIDCC #0 07/03/12 02/16/22 trazodone 50 mg tablet 50 mg PO HS #0 07/03/12 triazolam 0.25 mg tablet (Halcion) 0.25 mg PO HSP #0 07/03/12 Previous Rx's Medication Instructions Recorded metformin 500 mg tablet 500 mg PO BID #30 tab 03/02/21 hydrocodone 5 mg-acetaminophen 325 1 tab PO Q6HR PRN #12 tab 06/25/21 mg tablet Allergies Allergy/AdvReac Type Severity Reaction Status Date / Time cat dander [CAT DANDER] Allergy Unknown Verified 02/15/22 20:12 dog dander [DOG DANDER] Allergy Unknown Verified 02/15/22 20:12 horse dander [HORSE DANDER] Allergy Unknown Verified 02/15/22 20:12 Review of Systems Review of Systems Narrative: Pertinent positive and negative findings as per HPI Remainder of review of systems is otherwise unremarkable for Constitutional: Fevers, chills, weakness ENT: No sore throat, neck pain, ear pain CV: Chest pain, palpitations, Respiratory: Cough, wheeze, dyspnea GI: Nausea, vomiting, diarrhea, : Dysuria, hematuria, Patient History Medical History Depression Hyperlipidemia Poorly controlled diabetes mellitus Social History Smoking Status: Former smoker Smoking Status: Former smoker tobacco type: cigarettes alcohol intake frequency: holidays/special occasions only Substance Use Type: does not use Exam Initial Vital Signs Initial Vital Signs: Vital Signs Temperature 98 F 02/15/22 20:10 Pulse Rate 82 02/15/22 20:10 Respiratory Rate 17 02/15/22 20:10 Blood Pressure 161/80 H 02/15/22 20:10 Pulse Oximetry 99 02/15/22 20:10 General: Frail appearing woman in no acute distress. Able to give a complete and coherent history. HEENT: Moist mucous membranes, normal sclera with reactive pupils, Respiratory: Lungs are clear to auscultation, no wheezing no rales no rhonchi. Full and symmetrical air movement Cardiac: Regular rate and rhythm no murmurs no bruits Abdomen: Soft, nontender, good bowel tones, no flank pain Skin: Warm and dry, no rashes Neurologic: Grossly neurologically intact with no obvious asymmetries or abnormalities Extremities: Right hand with 2 large lacerations on the dorsum of the hand ar ound the base of the 5th finger and 2 large lacerations on the palmar surface. There does appear to be at least muscle of not tendon involvement as well. She is neurovascularly intact. There are no other injuries Psych: Cooperative, appropriate insight and affect Course Orders Ordered: ED Orders 02/15/22 23:00 CBC Auto Diff [Complete Blood Count AUTO DIFF] Stat CMP [Comprehensive Metabolic Panel] Stat Lactate (Lactic Acid) Stat 02/16/22 07:00 COVID19 -Nasal RAPID/Pre-Proc Stat Sodium Chloride (Normal Saline 0.9%) 1,000 mls @ 150 mls/hr IV CONT DREAD Last Admin: 02/16/22 02:16 Dose: 150 mls/hr Documented by: DANTE Ampicillin Sodium/Sulbactam (Sodium 1.5 gm/ Sodium Chloride) 100 mls @ 100 mls/hr IV Q6H DREAD Last Infusion: 02/16/22 06:49 Dose: 0 mls/hr Documented by: Admin: 02/16/22 05:49 Dose: 100 mls/hr Documented by: DANTE Morphine Sulfate (Morphine 2 Mg/Ml Inj) 2 mg IV Q2HR PRN PRN Reason: Pain, Moderate (4-6) Last Admin: 02/16/22 05:55 Dose: 2 mg Documented by: Admin: 02/16/22 02:22 Dose: 2 mg Documented by: DANTE Discontinued Medications Diphtheria/Tetanus/Acell Pertussis (Tet,Diph,Pertuss(Acell),Vac/Pf 0.5 Ml Syringe) 0.5 ml IM .ONCE ONE Stop: 02/15/22 20:19 Last Admin: 02/15/22 23:17 Dose: 0.5 ml Documented by: HOPE Diphtheria/Tetanus/Acell Pertussis (Tet,Diph,Pertuss(Acell),Vac/Pf 0.5 Ml Syringe) 0.5 ml IM .ONCE ONE Stop: 02/16/22 00:40 Last Admin: 02/16/22 00:45 Dose: Not Given Documented by: DANTE Ampicillin Sodium/Sulbactam (Sodium 3 gm/ Sodium Chloride) 100 mls @ 100 mls/hr IV NOW ONE Stop: 02/16/22 00:40 Last Infusion: 02/16/22 02:01 Dose: 0 mls/hr Documented by: Admin: 02/16/22 00:56 Dose: 100 mls/hr Documented by: HOPE Morphine Sulfate (Morphine 2 Mg/Ml Inj) 2 mg IV NOW ONE Stop: 02/15/22 23:10 Last Admin: 02/15/22 23:17 Dose: 2 mg Documented by: HOPE Vital Signs Vital signs: Vital Signs - 8 hr 02/16/22 00:00 02/16/22 01:00 02/16/22 02:00 Pulse Rate 68 66 69 Respiratory Rate 18 18 18 Blood Pressure 155/74 H 142/66 H 177/79 H Pulse Oximetry 97 98 98 02/16/22 03:00 02/16/22 04:00 02/16/22 05:00 Pulse Rate 70 63 72 Respiratory Rate 18 20 18 Blood Pressure 158/74 H 128/60 157/67 H Pulse Oximetry 92 94 MDM - Animal Bite Lab Data Result diagrams: 02/15/22 23:00 02/15/22 23:00 Labs: Lab Results 02/15/22 02/15/22 02/15/22 Range/Units 23:00 23:00 23:00 WBC 8.7 (4.5-11.0) X10^3/uL RBC 5.18 (4.0-5.2) X10^6/uL Hgb 14.9 (12.0-16.0) g/dL Hct 43.6 (36-46) % MCV 84.2 (80-100) fL MCH 28.7 (26-34) PG MCHC 34.1 (30-36) % RDW 13.2 (11.6-14.8) % Plt Count 243 (150-400) X10^3/uL Neut % (Auto) 73.6 (50-75) % Lymph % (Auto) 19.0 L (25-40) % [place] % (Auto) 5.7 (3-14) % Eos % (Auto) 0.7 L (2-4) % Baso % (Auto) 1.0 (0-2) % Neut # (Auto) 6400 (5714-5110) /uL Lymph # (Auto) 1700 (4788-8975) /uL [place] # (Auto) 500 (0-900) /uL Eos # (Auto) 100 (0-450) /uL Baso # (Auto) 100 (0-100) /uL Sodium 139 (137-145) mmol/L Potassium 3.6 (3.4-5.1) mmol/L Chloride 99 (98-107) mmol/L Carbon Dioxide 31 (22-32) mmol/L BUN 11 (7-17) mg/dL Creatinine 0.56 (0.52-1.04) mg/dL Estimated GFR > 60.0 (>60) mL/min BUN/Creatinine Ratio 19.6 (6-22) Glucose 402 H (80-110) mg/dL Lactate 1.5 (0.7-2.1) mmol/L Calcium 9.4 (8.4-10.2) mg/dL Total Bilirubin 0.7 (0.2-1.3) mg/dL AST 19 (14-36) IU/L ALT 15 (<35) IU/L Alkaline Phosphatase 80 (38-126) U/L Total Protein 8.1 (6.3-8.2) g/dL Albumin 4.4 (3.5-5.0) g/dL Globulin 3.7 (1.7-4.1) g/dL Albumin/Globulin Ratio 1.2 (1.0-2.8) Imaging Data hand XR: Radiologist's Impression: FINDINGS:? ? Bones:? There is a mildly displaced in comminuted fracture the 5th proximal phalanx extending to the metacarpophalangeal joint.? There is diffuse osteopenia.? There is moderate degeneration at the 1st carpometacarpal joint as well as mild to moderate degeneration of the interphalangeal joints.? No suspicious bony lesions.? ? Soft tissues:? There is a metallic ring on the 3rd digit slightly limiting evaluation.? Otherwise, no discrete radiopaque foreign bodies.? No suspicious soft tissue calcifications.? ? IMPRESSION:? ? 1. Fracture of the 5th proximal phalanx extending to the 5th MCP joint. ? 2. Diffuse osteopenia. ? ? Dictated by: Sd Weiss M.D. on 02/15/2022 at 21:07 ? ? MDM Narrative Medical decision making narrative: 81-year-old woman whose dog bit her right hand with 2 large through and through wounds and a fracture at the base of the metatarsal from the injury. A concern for tendon injury as well. He is is reviewed with Dr. Morris, orthopedic surgeon. Patient will be admitted for IV antibiotics and surgical washout and debridement with bone set as needed Discharge Plan Departure Patient Disposition: Admitted as Observation Clinical Impression: Dog bite Metacarpal bone fracture Qualifiers: Encounter type: initial encounter Metacarpal bone: fifth Fracture type: open Metacarpal location: base Fracture alignment: displaced Laterality: right Qualified Code(s): S62.316B - Displaced fracture of base of fifth metacarpal bone, right hand, initial encounter for open fracture
[2022-02-16] MEDS: AMPICILLIN/SULBACTAM 3 GM 3 GM in SODIUM CHLORIDE 0.9% 100 ML IV (00:56)
[2022-02-16] MEDS: SODIUM CHLORIDE 0.9% 1,000 ML 150 ML IV (02:16)
[2022-02-16] MEDS: MORPHINE 2 MG/ML INJ IV ×3 (02:22→10:43)
[2022-02-16] MEDS: AMPICILLIN/SULBACTAM 1.5 GM 1.5 GM in SODIUM CHLORIDE 0.9% 100 ML IV (05:49)
[2022-02-16 07:51] LABS: COVID19 -Nasal RAPID Negative (Negative)
--- NOTE | 2022-02-16 07:56 | P.HP_ITS ---
History of Present Illness History of Present Illness Date Patient Seen: 02/16/22 Time Patient Seen: 08:00 Chief complaint: dog bite on right hand Narrative: This is a pleasant 81-year-old female who was up last night in the bathroom and got bit by her dog. She noted the acute onset of right hand pain. She said that she was attempting to remove something that the dog was chewing on and it got hold of her hand and crunched up her hand. She has had the dog for about 5 or 6 years and has not been bit before. Patient History Medical History Depression Hyperlipidemia Poorly controlled diabetes mellitus Family & Social History Safety & Behavioral: Feels Safe in Current Yes Environment Been Physically Hurt or No Threatened By a Person Tobacco & Substance use: Smoking Status Former smoker alcohol intake frequency holiday/special occasion Substance Use Type does not use Meds Home Medications and Allergies Home Medications Medication Instructions Recorded Confirmed Type ASPIRIN (#ASPIRIN) 81 mg PO #0 07/03/12 History FLAXSEED OIL (FLAX OIL) 1,000 mg PO #0 07/03/12 History Fish Oil (#OMEGA 3) 1,000 mg PO #0 07/03/12 History GARLIC (GARLIC OIL) 1 sgl PO #0 07/03/12 History LOVASTATIN (MEVACOR) 20 mg PO QDAYPM #0 07/03/12 History [CALCIUM] #0 07/03/12 History citalopram 40 mg tablet 40 mg PO QDAY #0 07/03/12 History metformin 1,000 mg tablet 1,000 mg PO BIDCC #0 07/03/12 02/16/22 History trazodone 50 mg tablet 50 mg PO HS #0 07/03/12 History triazolam 0.25 mg tablet (Halcion) 0.25 mg PO HSP #0 07/03/12 History metformin 500 mg tablet 500 mg PO BID #30 tab 03/02/21 Rx hydrocodone 5 mg-acetaminophen 325 1 tab PO Q6HR PRN #12 tab 06/25/21 Rx mg tablet Allergies Allergy/AdvReac Type Severity Reaction Status Date / Time cat dander [CAT DANDER] Allergy Unknown Verified 02/15/22 20:12 dog dander [DOG DANDER] Allergy Unknown Verified 02/15/22 20:12 horse dander [HORSE DANDER] Allergy Unknown Verified 02/15/22 20:12 Review of Systems Review of Systems Narrative: She is taking her oral hypoglycemic on a regular basis. Exam Vital Signs (past 8 hours): - 02/16/22 00:00 02/16/22 01:00 02/16/22 02:00 Temperature Pulse Rate 68 66 69 Respiratory Rate 18 18 18 Blood Pressure 155/74 H 142/66 H 177/79 H Pulse Oximetry 97 98 98 02/16/22 03:00 02/16/22 04:00 02/16/22 05:00 Temperature Pulse Rate 70 63 72 Respiratory Rate 18 20 18 Blood Pressure 158/74 H 128/60 157/67 H Pulse Oximetry 92 94 02/16/22 07:28 Temperature 100.2 F H Pulse Rate 76 Respiratory Rate 14 Blood Pressure 133/61 Pulse Oximetry 96 Oxygen Delivery Method Room Air Narrative Exam Narrative: HEENT is benign, lungs adequate breath sounds, occasional wheeze, cor regular rate and rhythm, abdomen soft and benign right upper extremity multiple puncture wounds on the dorsum of the right hand over the 5th and 4th metacarpal, puncture wound on the flexion surface of the 5th finger in the palmar region, decreased range of motion in the finger, vascular appearing finger tip with adequate capillary refill, obvious deformity of the 5th finger, some deformity of the 4th finger, bite and chew rogers Objective Labs Result Diagrams: 02/15/22 23:00 02/15/22 23:00 Labs: Laboratory Results - last 24 hr 02/15/22 02/15/22 02/15/22 23:00 23:00 23:00 WBC 8.7 RBC 5.18 Hgb 14.9 Hct 43.6 MCV 84.2 MCH 28.7 MCHC 34.1 RDW 13.2 Plt Count 243 Neut % (Auto) 73.6 Lymph % (Auto) 19.0 L Hendricks % (Auto) 5.7 Eos % (Auto) 0.7 L Baso % (Auto) 1.0 Neut # (Auto) 6400 Lymph # (Auto) 1700 Hendricks # (Auto) 500 Eos # (Auto) 100 Baso # (Auto) 100 Sodium 139 Potassium 3.6 Chloride 99 Carbon Dioxide 31 BUN 11 Creatinine 0.56 Estimated GFR > 60.0 BUN/Creatinine Ratio 19.6 Glucose 402 H Lactate 1.5 Calcium 9.4 Total Bilirubin 0.7 AST 19 ALT 15 Alkaline Phosphatase 80 Total Protein 8.1 Albumin 4.4 Globulin 3.7 Albumin/Globulin Ratio 1.2 SARS-CoV-2 (PCR) 02/16/22 07:34 WBC RBC Hgb Hct MCV MCH MCHC RDW Plt Count Neut % (Auto) Lymph % (Auto) Hendricks % (Auto) Eos % (Auto) Baso % (Auto) Neut # (Auto) Lymph # (Auto) Hendricks # (Auto) Eos # (Auto) Baso # (Auto) Sodium Potassium Chloride Carbon Dioxide BUN Creatinine Estimated GFR BUN/Creatinine Ratio Glucose Lactate Calcium Total Bilirubin AST ALT Alkaline Phosphatase Total Protein Albumin Globulin Albumin/Globulin Ratio SARS-CoV-2 (PCR) Negative x-rays show a comminuted right small finger proximal phalanx fracture with g ross displacement Assessment & Plan Assessment and plan (1) Dog bite: Status: Acute (2) Open fracture proximal phalanx finger: Status: Acute Plan She has an open fracture of her right proximal phalanx with a complex right hand dog bite. I have recommended irrigation and debridement with repair as indicated. She does have a proximal phalanx fracture which likely could be stabilized with pinning. The plan for irrigation and debridement with repair is indicated and pinning of her proximal phalanx fracture possible tendon repair was discussed in detail. Procedures alternatives risks benefits and complicat ions were discussed. I told her that we will schedule it for later this day likely with the her Stephon. I also explained to her that she will need to be on oral antibiotics because of her dog bite. Time Spent With Patient Critical Care time: I spent a total of [] minutes of critical care time on this patient's care today; this time is exclusive of procedural time.
--- NOTE | 2022-02-16 09:33 | PC.NURSE ---
daughter peewee elliott phone [phone] boyfriend/lives together [facility] [phone] please call with update postop
--- NOTE | 2022-02-16 09:42 | PC.NURSE ---
report to gladis cormier or
--- NOTE | 2022-02-16 09:44 | PC.NURSE ---
Pt belongings (top, underwear, pants all urine stained) placed in bag. yellow metal necklaces and bracelet placed in plastic bag w/ label attached. Sent to Pre op w/ pt. Pt currently in wheelchair w/ warm blankets, aware of NPO status. No acute distress. New dressing to right hand wound.
[2022-02-16] MEDS: LACTATED RINGERS 1,000 ML 42 ML IV (10:16)
--- NOTE | 2022-02-16 10:22 | SUR.HOLD ---
Patient c/o pain 10/10 to right hand; blood sugar in holding area 276. Notified Dr Worrell for orders for pain control and hyperglycemia.
[2022-02-16] MEDS: INSULIN LISPRO 100 UNIT/ML 3ML VIAL SUBCUT ×2 (10:55→13:37)
--- NOTE | 2022-02-16 11:00 | SUR.HOLD ---
Report received from KIMBER Stroud in the ER. Pt brought to preop holding. Report to KIMBER Michaud. Repeat glucocheck at 1010 = 276. Pt pain level 08/20. Dr Worrell updated. Morphine and insulin given as ordered.
[2022-02-16] MEDS: CEFAZOLIN 1 GM VIAL 2 GM IV (12:15)
--- NOTE | 2022-02-16 12:18 | SUR.OPER ---
Supine on padded OR bed, head on pillow, left arm secured on padded arm boards at <90 degrees abduction,, right arm draped into sterile field on arm table. Legs uncrossed, knees slightly bent over pillow, safety belt at thigh, tape over blanket over lower legs. Directed and approved by surgical attending
[2022-02-16] MEDS: BUPIVACAINE 0.25% (PF) 30 ML, EPINEPHrine 0.15 MG INJ (12:35)
--- NOTE | 2022-02-16 13:41 | P.OP_ITS ---
Operative Date/Time/Diagnoses Date of procedure: 02/16/22 Time of procedure: 12:00 Pre-op diagnosis: Right small finger proximal phalanx fracture, open due to dog bite S62.619B Dog bite right hand multiple wounds W54.0xxa Post-op diagnosis: same Procedure & Clinicians Procedure: Closed reduction percutaneous pinning right small finger proximal phalanx fracture CPT code 48991 Irrigation debridement right hand dog bite wounds multiple, 3 separate wounds to dorsal punctures and a separate volar 2 cm laceration at the level of small finger MCP CPT code 47726 Same procedure as scheduled: Yes Indications: Patient is a 81-year-old female that was at home with her dogs. She thought her dog had something in his mouth that it should not she tried to take it away and got bit. Later did appear to be a dog bone. She sustained multiple wounds and a fracture with small digit deformity. She was brought to the [facility] Emergency Room where she was evaluated found to have the displaced fracture and multiple dog bite wounds to [place] and indicated for surgery and reviewed with me today. I have reviewed the patient's films demonstrate displaced proximal phalanx small finger fracture with angulation over 50? on the lateral view and 3 deep bite wounds. The risks of surgery were discussed with the patient including risks for infecti on, wound healing problems, need for additional procedures, posttraumatic arthritis, nonunion malunion hardware complications and risks of surgery in general anesthetic including heart attack blood clots pneumonia stroke, paralysis and up to and including . Consent for surgery was signed. Surgeon: Atiya Simmons Click Yes if Unassisted: Yes Anesthesia Type: General and Local (0.25%Marcaine with epinephrine digital block) Operative Notes Findings: Displaced proximal phalanx fracture scar finger base. Three major bite lacerations to dorsal and 1 volar along the level of the 5th digit MCP The wounds were irrigated. The fracture was reduced and pinned with 045 K-wires Closure Type: primary Specimen(s): none sent Prosthetic devices, grafts, tissues, transplants, or devices: 045 K-wire x2 Estimated Blood Loss (mL): 5 Blood products transfused: none Tourniquet time (min): 0 Procedure in detail: Patient was seen in the in the emergency room. Site of tear had been marked and confirmed informed consent confirmed. She was brought back to the operating room by the anesthesia team positioned supine on operative table with a hand table on the right side. The right arm was prepped and draped in standard sterile fashion a formal time-out procedure was performed confirming the patient's side and site of surgery administration of appropriate antibiotics. The patient received ampicillin in the ER several hours ago and had 2 g of Ancef in the operating room A tourniquet was placed but not inflated. Attention was turned to the patient's right hand there were 3 major lacerations to dorsally at the level of the 4th and 5th MCP and just proximal and 1 volar laceration at the level of the 5th MCP. There is deformity of the 5th digit proximal phalanx with a proximal phalanx base fracture. The wounds were debrided of skin subcutaneous tissue. And thoroughly irrigated. Once this was completed attention turned to the small finger proximal phalanx fracture. This was closed reduced and checked under fluoroscopy then 045 K-wire was used to pin across the fracture 1 in a antegrade fashion proximally to distally across the fracture. There was an additional comminution at the base of the 5th proximal phalanx and a transverse wire from the 5th proximal phalanx base in to the 4th proximal phalanx base was used to stabilize this. This achieved appropriate alignment on AP oblique and lateral images at this time the pins were cut and bent. A loose 4-0 suture was placed in each of the larger lacerations to continue to allow drainage. Dressings were applied and a well- padded ulnar gutter splint was applied in a safe position. The drapes removed the patient was woken from anesthesia and taken to recovery room in good condition. There no immediate complications of this procedure. Complications: none Post-operative Condition: stable Disposition: PACU Plan for aftercare: Keep splint in place. Start taking antibiotic Augmentin twice a day for 2 weeks to prevent infection. Mcintosh for pain control. Elevate help with swelling and pain. Follow-up as scheduled [facility] next week for a wound check with 1 of our physician assistants. At that time the patient will go back into an ulnar gutter splint, cast or can have a ulnar gutter orthosis made with occupational therapy. The pins will stay in place for 4-5 weeks. Follow-up in 4-[address] Simmons
== END 2022-02-16 14:40 | disposition home or self-care (01) ==
LOC: ED 02-16 07:48 → AC 02-16 07:52
PROVIDERS: Orthopaedic Surgery Foot and Ankle Surgery; Admitting Provider Orthopaedic Surgery; Emergency Provider Emergency Medicine; PCP Family Medicine; Referring Provider Emergency Medicine; Visit Provider Orthopaedic Surgery
PROC: (CPT 12001; principal; 2022-02-16 11:15)
DX: S62.616B Displaced fracture of proximal phalanx of right little finger, initial encounter for open fracture (principal); W54.0XXA Bitten by dog, initial encounter; Y92.003 Bedroom of unspecified non-institutional (private) residence as the place of occurrence of the external cause; E11.9 Type 2 diabetes mellitus without complications; E78.5 Hyperlipidemia, unspecified; Z79.84 Long term (current) use of oral hypoglycemic drugs; F32.A Depression, unspecified; Z20.822 Contact with and (suspected) exposure to COVID-19; Z23 Encounter for immunization
CPT/HCPCS: 12001; 26727; 36415; 73130; 80053; 82962; 83605; 85025; 87635; 90471; 96365; 96366; 96372; 96375; 96376; 99284; C9803; G0378; 90715; J0171; J0295; J0690; J1815; J2250; J2270; J2704; J3010